=== PATIENT | male | born 1980 | race Caucasian/White ===

== ENCOUNTER 2017-08-28 16:14 | Emergency (ER) | payer BC ==
[~2017-08-28] VITALS: Ht 177.8 cm; Wt 108.7 kg
[2017-08-28 17:28] LABS: HEMATOCRIT 44.5 % (38.0-50.0); MCH 31.1 PG (29.0-34.0); MCV 86.4 FL (86-99); PLATELET COUNT 283 K/uL (156-360); RBC DIS.WIDTH-CV 12.1 % (11.8-14.6); RBC DIS.WIDTH-SD 38.5 % (39-53); RED BLOOD COUNT 5.15 M/uL (4.00-5.50); WHITE BLOOD COUNT 10.1 K/uL (4.1-10.2)
[2017-08-28 17:40] LABS: CHLORIDE 105 mEq/L (99-109); SODIUM 138 mEq/L (136-147)
[2017-08-28 17:41] LABS: GLUCOSE 92 mg/dL (70-99)
[2017-08-28 17:45] LABS: CREATININE 0.9 mg/dL (0.6-1.3); GFR ESTIMATE (CALCULATED) > 59 mL/min/ (58.99-99999)
[2017-08-28 17:46] LABS: UREA NITROGEN (BUN) 10 mg/dL (9-23)
[2017-08-28 17:51] LABS: TROP-I INTERPRETATION NEGATIVE; TROPONIN-I < 0.01 ng/mL (0.0-0.30)
[2017-08-28 18:39] LABS: ALBUMIN 4.7 g/dL (3.2-4.8)
[2017-08-28 18:42] LABS: TOTAL PROTEIN 7.7 g/dL (6.4-8.3)
[2017-08-28 18:44] LABS: TOTAL BILIRUBIN 0.8 mg/dL (0.0-1.0)
[2017-08-28 18:45] LABS: ALKALINE PHOSPHATASE 88 IU/L (3-129)
[2017-08-28 18:47] LABS: AST (GOT) 16 IU/L (2-34)
[2017-08-28 18:48] LABS: ALT (GPT) 36 IU/L (3-49); DIRECT BILIRUBIN 0.2 mg/dL (0.0-0.3)
[2017-08-28 18:49] LABS: LIPASE 17 U/L (1.0-51.0)
[2017-08-28 20:38] LABS: TROP-I INTERPRETATION NEGATIVE; TROPONIN-I < 0.01 ng/mL (0.0-0.30)
[2017-08-28] MEDS ORDERED: AUGMENTIN875 MG PO (20:55)
[2017-08-28 21:15] VITALS: BP 138/81
== END 2017-08-28 21:16 | disposition home or self-care (01) ==
LOC: EME 16:14
PROVIDERS: Physician Assistant
DX: R07.89 Other chest pain (principal); K57.32 Diverticulitis of large intestine without perforation or abscess without bleeding; F32.9 Major depressive disorder, single episode, unspecified; Z82.49 Family history of ischemic heart disease and other diseases of the circulatory system
CPT/HCPCS: 71046; 74176; 80048; 80076; 83690; 84484; 85027; 93005; 99281; 99285